=== PATIENT | female | born 1945 | race Caucasian/White ===

== ENCOUNTER → 2017-11-11 14:34 | Outpatient (CLI) | payer MEDICARE, SELFPAY ==
--- NOTE | 2017-11-11 14:44 | RAD_ITS ---
STUDY: X-RAY - ABDOMEN/PELVIS REASON FOR EXAM: Female, 72 years old. Right lower quadrant pain TECHNIQUE: Single AP view of the abdomen / pelvis. COMPARISON: None. FINDINGS: Normal visualized lung bases. There is an unremarkable bowel gas pattern. There is no demonstrated free abdominal air. The visualized liver, spleen and kidneys are grossly normal in size and morphology. Cholecystectomy clips noted. No intra-abdominal calcification. Phleboliths noted. Normal soft tissue structures. Degenerative change bilateral hip joints, bilateral sacroiliac joints, and the lower lumbar spine. RAD/Abdomen Single View IMPRESSION: Normal x-ray examination of the abdomen and pelvis. Electronically Signed: Huy Alonzo MD at 1:46 EDT Tel , Service support ,
== END ==
PROVIDERS: Family Provider Family Medicine; PCP Family Medicine; Visit Provider Family Medicine
DX: R10.9 Unspecified abdominal pain (principal)
CPT/HCPCS: 74018

== ENCOUNTER 2018-01-02 08:54 | Day surgery (SDC) | payer MEDICARE, SELFPAY ==
[2018-01-02 09:27] VITALS: BP 156/92; PULSE 66; RESP 18; TEMP 36.7; O2SAT 99; BMI 31.1
[2018-01-02 11:15] VITALS: BP 132/80; BP 156/92; PULSE 67; RESP 16; TEMP 35.8; O2SAT 98
[2018-01-02 11:20] VITALS: BP 129/82; BP 156/92; PULSE 62; RESP 16; O2SAT 100
--- NOTE | 2018-01-02 11:21 | PCM.OPRPT ---
Report of Operation Date of Procedure: 01/02/18 Pre-Operative Diagnosis: Screening for colon cancer Post-Operative Diagnosis: Normal colon Surgery/Procedure Performed:: Colonoscopy Type of Anesthesia:: MAC Anesthesiologist: Willy Bello Specimen's removed: None Estimated Blood Loss (mL): None Description of Procedure: Procedure: Colonoscopy After reviewing the risks benefits, the patient was deemed in satisfactory condition to undergo procedure. After obtaining informed consent, the scope was passed under direct visualization. Throughout the procedure, the patient's blood pressure pulse and position saturations were monitored continuously anesthesia. The colonoscope was introduced through the anus and advanced to the cecum, identified by the appendiceal orifice, IC valve and transillumination. The colonoscopy was performed without difficulty. The patient tolerated procedure well. Quality of bowel prep was good. Findings: The perianal and digital rectal exam were normal. The colon (entire examined portion) appeared normal. Retroflexed view of the distal rectum and anal verge was normal and showed no anal or rectal abnormalities Impression: 1. The entire colon is normal. 2. The distal rectal and anal verge were normal on retroflexed view. Recommendations: Repeat colonoscopy in 10 years for screening purposes pending on overall health at that time - Complications none
[2018-01-02 11:25] VITALS: BP 124/79; BP 156/92; PULSE 60; RESP 16; O2SAT 100
[2018-01-02 11:30] VITALS: BP 145/90; BP 156/92; PULSE 60; RESP 16; TEMP 35.8; O2SAT 100
[2018-01-02 11:52] VITALS: BP 156/92
== END 2018-01-02 11:53 | disposition home or self-care (01) ==
LOC: EN 08:55 → AC 08:58
PROVIDERS: Family Provider Family Medicine; PCP Family Medicine; Visit Provider Surgery
PROC: 0DJD8ZZ Inspection of Lower Intestinal Tract, Via Natural or Artificial Opening Endoscopic (ICD-10-PCS; CPT 45378; principal; 2018-01-02 10:25)
DX: Z12.11 Encounter for screening for malignant neoplasm of colon (principal); Z86.010 Personal history of colon polyps; I69.311 Memory deficit following cerebral infarction; I69.369 Other paralytic syndrome following cerebral infarction affecting unspecified side; G83.89 Other specified paralytic syndromes; I10 Essential (primary) hypertension; E78.5 Hyperlipidemia, unspecified; F41.9 Anxiety disorder, unspecified; Z85.3 Personal history of malignant neoplasm of breast; Z90.13 Acquired absence of bilateral breasts and nipples; Z79.82 Long term (current) use of aspirin; Z79.899 Other long term (current) drug therapy
CPT/HCPCS: G0121; J7120

== ENCOUNTER → 2018-02-20 10:35 | Outpatient (CLI) | payer MEDICARE, SELFPAY ==
--- NOTE | 2018-02-20 10:38 | RAD_ITS ---
STUDY: X-RAY - LUMBAR SPINE REASON FOR EXAM: Female, 72 years old. Right lumbar radiculopathy, history of breast cancer TECHNIQUE: 5 view(s) of the lumbar spine were obtained. COMPARISON: None FINDINGS: Normal lumbar lordosis. There is no substantial scoliosis. There is a minimal grade 1 anterolisthesis of L4 relative to L5. There is diffuse endplate spondylosis. There is severe narrowing of the L4-5 disc space with sclerosis of the adjacent endplates. There is moderately severe narrowing of the L2-3 and L5-S1 disc spaces also. There is no demonstrated fracture. There is no demonstrated spondylolysis of the pars interarticulares. There are calcified plaques of the abdominal aorta. RAD/L/S Spine Min 4 Views IMPRESSION: Degenerative changes of the spine, as detailed above. Electronically Signed: Keshawn Sorto MD at 18:44 EDT , Service support ,
== END ==
PROVIDERS: Family Provider Family Medicine; PCP Family Medicine; Visit Provider Family Medicine
DX: M54.16 Radiculopathy, lumbar region (principal)
CPT/HCPCS: 72110

== ENCOUNTER 2018-04-28 15:18 | Emergency (ER) | payer MEDICARE, SELFPAY ==
[2018-04-28 15:19] VITALS: BP 154/79; PULSE 64; RESP 16; TEMP 36.8; O2SAT 98; BMI 29.9
[2018-04-28 15:56] LABS: Absolute Lymphocyte Count 1.63 X10^3/ul (0.83-4.51); Absolute Neutrophil Count 4.6 X10^3/uL (2.0-7.7); Basophil# 0.03 X10^3/uL; Basophil% 0.4 % (0-1); Eosinophil# 0.19 X10^3/uL; Eosinophils% 2.7 % (0-5); Hematocrit 36.6 % (37-47); Hemoglobin 11.8 g/dl (12.0-15.0); Lymphocyte # 1.63 X10^3/ul (4.0); Lymphocyte % 23.4 % (19-41); Mean Corp Hgb Conc 32.2 g/gl (32-36); Mean Corpuscular Volume 89.9 fL (81-99); Mean Platelet Vol. 10.5 fl (6.2-12.0); Monocyte# 0.52 X10^3/uL; Monocyte% 7.5 % (0-10); Neutrophil # 4.58 X10^3/uL (2.7-7.7); Neutrophil % 65.9 % (47-70); Platelet Count 224 K/mm3 (150-450); RBC Distribution Width CV 15.4 % (11.6-14.6); RBC Distribution Width SD 50.2 fl (35.1-43.9); Red Blood Count 4.07 M/mm3 (4.2-5.4)
[2018-04-28 16:02] LABS: POSITIVE COUNT NO; POSITIVE DIFFERENTIAL NO; POSITIVE MORPHOLOGY NO
[2018-04-28 16:10] LABS: Anion Gap 7 (5-15); BUN 23 mg/dL (7-18); BUN/Creat Ratio 27.4 RATIO (10-20); Calcium,Total 8.7 mg/dL (8.5-10.1); Chloride 111 mmol/L (98-107); Creatinine, Serum 0.84 mg/dL (0.55-1.02); EST Glomerular Filtration Rate 71 mL/min (>60); Est Glom Filt Rate - Afr Amer 86 mL/min (>60); Estimated Creatinine Clearance 55.28 ml/min; Glucose 104 mg/dL (74-106); Potassium 3.9 mmol/L (3.5-5.1); Sodium Level 144 mmol/L (136-145)
--- NOTE | 2018-04-28 16:16 | EKG12_ITS ---
Test Reason : MEDICAL CLEARANCE Blood Pressure : / mmHG Vent. Rate : 061 BPM Atrial Rate : 061 BPM P-R Int : 250 ms QRS Dur : 090 ms QT Int : 426 ms P-R-T Axes : 035 008 031 degrees QTc Int : 428 ms Sinus rhythm with 1st degree A-V block Inferior infarct , age undetermined Abnormal ECG Confirmed by JESSIE DAVIS ([id number]), editorial cartoonist SAMM SORENSON ([id number]) on 05/02/2018 2:21:05 PM Referred By: PRESTON Confirmed By:JESSIE DAVIS
[2018-04-28 16:26] LABS: Alcohol, Blood (Medical)-Serum < 3.0 mg/dL
[2018-04-28 16:51] LABS: Thyroid Stim Hormone (TSH) 1.82 uIU/mL (0.358-3.74)
[2018-04-28 17:55] LABS: Amphetamine Urine VISTA NEGATIVE (<1000 ng/mL); Barbiturate Urine VISTA NEGATIVE (< 200 ng/mL); Benzodiazepine Urine VISTA POSITIVE (< 200 ng/mL); Cocaine Urine VISTA NEGATIVE (< 300 ng/mL); Ecstacy Urine VISTA NEGATIVE (< 500 ng/mL); Methadone Urine VISTA NEGATIVE (< 300 ng/mL); PCP Urine VISTA NEGATIVE (< 25 ng/mL); THC Urine VISTA NEGATIVE (< 50 ng/mL); Vista UDS pH Range 6
--- NOTE | 2018-04-28 18:00 | NURSING ---
CALLED CRISIS FOR EVALUATION
[2018-04-28] MEDS: Acetaminophen 500 MG Tablet 1000 MG PO (18:27)
[2018-04-28 18:44] VITALS: BP 162/82; PULSE 64; RESP 17; O2SAT 97
[2018-04-28 18:56] LABS: Mucous, Urine 0 SEEN /hpf (<or=2+); Red Blood Cells-Urine 0 SEEN /hpf (0-5)
[2018-04-28 19:06] LABS: Color, Urine Yellow (Yellow); Glucose, Dipstick Normal (Normal); Ketone-Dipstick Negative (Negative); Leukocyte Esterase-Dipstick 500 /ul (Negative); Nitrite-Dipstick Negative (Negative); Occult Blood-Urine Negative /ul (Negative); Protein-Dipstick 30 mg/dl (Negative); Urine Clarity Clear (Clear); Urine Urobilinogen Normal (Normal)
[2018-04-28 19:07] LABS: Urine Bilirubin Dipstick 1 mg/dL (Negative)
[2018-04-28 19:19] LABS: Bacteria 1+ /hpf (None Seen); Calcium Oxalate Crystals Ur 4+ /hpf (<or=2+); Squamous Epithelial Cells - UA 0-5 SEEN /hpf (5-10); White Blood Cells 5-10 SEEN /hpf (0-5)
--- NOTE | 2018-04-28 19:20 | ED.RN ---
MOSES FROM [facility]IS HERE.
[2018-04-28 19:51] VITALS: BP 143/83; PULSE 67; RESP 22; O2SAT 100
[2018-04-28] MEDS: Cephalexin 250 MG Capsule 500 MG PO (21:46)
[2018-04-28 22:20] VITALS: BP 170/78; PULSE 64; RESP 16; O2SAT 98
[2018-04-28] MEDS: Verapamil 120 MG Tablet 240 MG PO (22:22)
--- NOTE | 2018-04-28 22:47 | ED.VISSUMM ---
- ER Visit Summary Date of Service: 04/28/18 Chief Complaint: Depression and suicidal ideation History of Present Illness: The patient is a [address] Alas. She does not see a psychiatrist. She has long-standing history of depression. She gotten much worse over the past 2 weeks. She is feeling overwhelmed and having suicidal thoughts. Physical Examination: Vitals: Stable. Afebrile. General: Well-nourished and well-developed. Head: Normocephalic atraumatic. Neck: Supple, no lymphadenopathy. No JVD. Nontender. Cardiovascular: Regular rate and rhythm. No murmurs. Respiratory: No respiratory distress. Clear to auscultation bilaterally. Abdominal: Soft, nontender, nondistended, normal bowel sounds. No guarding, rebound, or peritoneal signs. Back: Nontender. Extremities: Nontender, no edema. Skin: Normal color, no rash. Neurologic: Alert and oriented ?3. Cranial nerves II through XII are intact. Normal strength and sensation. Mental status exam: Patient appears their stated age. Good posture and grooming. Good eye contact. Normal rate, volume, and latency of speech. No homicidal ideation. No auditory or visual hallucinations. Flow of thought is logical. Insight and judgment is fair. Test Results: EKG is sinus with a first-degree AV block rate of 61. No acute changes. CBC is remarkable for an H&H 11 point and 36.6. Chem-7 is more for chloride 111 BUN 23. UA is marked for leukocytes, 510 white blood cells, 1+ bacteria. Tox screen shows benzodiazepines. Alcohol level 0. TSH is 1.82. CT brain is normal. Emergency Department Course and Treatment: Patient was treated with Tylenol and Keflex p.o. She is resting comfortably. Treatment Plan: Patient discussed with the counseling center. They have arranged for her to be transferred to a psychiatric facility. Disposition: Transferred in stable condition. Impression: 1. Depression. 2. Suicidal ideation. 3. UTI. This note was generated with [employer] dictation software. It may contain incorrect words, spelling, and punctuation that were not noted in review of the chart prior to signing ED Disposition - Plan for ED Patient: Chief Complaint: Suicidal Referrals: Ha Alas, [Primary Care Provider] -
--- NOTE | 2018-04-28 22:52 | ED.RN ---
DAUGHTER CALLED WITH UPDATE
[2018-04-28 22:56] VITALS: BP 170/78; PULSE 64; RESP 16; O2SAT 98
== END 2018-04-28 23:15 ==
PROVIDERS: Emergency Provider Emergency Medicine; Family Provider Family Medicine; PCP Family Medicine
DX: F32.9 Major depressive disorder, single episode, unspecified (principal); R45.851 Suicidal ideations; N39.0 Urinary tract infection, site not specified; I10 Essential (primary) hypertension; E78.00 Pure hypercholesterolemia, unspecified; E87.6 Hypokalemia; Z85.3 Personal history of malignant neoplasm of breast; Z86.73 Personal history of transient ischemic attack (TIA), and cerebral infarction without residual deficits; Z79.82 Long term (current) use of aspirin; Z79.899 Other long term (current) drug therapy
CPT/HCPCS: 70450; 80048; 80307; 80320; 81001; 84443; 85025; 93005; 99284; G0480

== ENCOUNTER → 2018-08-30 11:28 | Outpatient (CLI) | payer MEDICARE, SELFPAY ==
[2018-08-23 14:21] VITALS: BMI 30.3
[2018-08-30 11:34] LABS: Red Blood Cells-Urine 0 SEEN /hpf (0-5); Squamous Epithelial Cells - UA 0 SEEN /hpf (5-10)
[2018-08-30 14:37] LABS: Absolute Lymphocyte Count 1.65 X10^3/ul (0.83-4.51); Absolute Neutrophil Count 5.9 X10^3/uL (2.0-7.7); Basophil# 0.03 X10^3/uL; Basophil% 0.4 % (0-1); Eosinophil# 0.19 X10^3/uL; Eosinophils% 2.2 % (0-5); Hemoglobin 12.2 g/dl (12.0-15.0); Lymphocyte # 1.65 X10^3/ul (4.0); Lymphocyte % 19.3 % (19-41); Mean Corp Hgb Conc 32.1 g/gl (32-36); Mean Corpuscular Hgb 28.8 pg (27.0-32.0); Mean Corpuscular Volume 89.8 fL (81-99); Monocyte# 0.74 X10^3/uL; Monocyte% 8.7 % (0-10); Neutrophil # 5.91 X10^3/uL (2.7-7.7); Neutrophil % 69.2 % (47-70); Platelet Count 235 K/mm3 (150-450); RBC Distribution Width CV 14.7 % (11.6-14.6); RBC Distribution Width SD 47.8 fl (35.1-43.9); Red Blood Count 4.23 M/mm3 (4.2-5.4); White Blood Count 8.5 K/mm3 (4.4-11.0)
[2018-08-30 14:38] LABS: POSITIVE COUNT NO; POSITIVE DIFFERENTIAL NO; POSITIVE MORPHOLOGY NO
[2018-08-30 14:51] LABS: Color, Urine Yellow (Yellow); Glucose, Dipstick Normal (Normal); Ketone-Dipstick Negative (Negative); Leukocyte Esterase-Dipstick Negative /ul (Negative); Nitrite-Dipstick Negative (Negative); Occult Blood-Urine Negative /ul (Negative); Protein-Dipstick 15 mg/dl (Negative); Urine Clarity Clear (Clear); Urine Urobilinogen Normal (Normal)
[2018-08-30 15:00] LABS: Urine Bilirubin Dipstick 1 mg/dL (Negative)
[2018-08-30 15:02] LABS: Bacteria 1+ /hpf (None Seen); Mucous, Urine 3+ /hpf (<or=2+); White Blood Cells 0-5 SEEN /hpf (0-5)
[2018-08-30 15:05] LABS: Hemoglobin A1c 6.1 % (4.2-6.3)
[2018-08-30 15:33] LABS: ALB/GLOB Ratio 1.4 RATIO (0.9-2.4); AST(SGOT) 16 U/L (15-37); Alanine Aminotransfer ALT/SGPT 36 U/L (13-56); Albumin, Serum 3.9 g/dL (3.2-5.0); Alkaline Phosphatase 94 U/L (45-117); Anion Gap 9 (5-15); BUN 25 mg/dL (7-18); BUN/Creat Ratio 26.7 RATIO (10-20); Calcium,Total 8.5 mg/dL (8.5-10.1); Chloride 106 mmol/L (98-107); Creatinine, Serum 0.94 mg/dL (0.55-1.02); EST Glomerular Filtration Rate 62 mL/min (>60); Est Glom Filt Rate - Afr Amer 76 mL/min (>60); Globulin 2.7 g/dL (2.2-4.2); Glucose 74 mg/dL (74-106); Potassium 3.2 mmol/L (3.5-5.1); Protein, Total 6.6 g/dL (6.4-8.2); Sodium Level 142 mmol/L (136-145); Thyroid Stim Hormone (TSH) 2.23 uIU/mL (0.358-3.74)
== END ==
PROVIDERS: Family Provider Family Medicine; PCP Family Medicine; Visit Provider Family Medicine
DX: I10 Essential (primary) hypertension (principal); R73.09 Other abnormal glucose
CPT/HCPCS: 36415; 80053; 81001; 83036; 84443; 85025

== ENCOUNTER → 2018-09-15 12:42 | Outpatient (CLI) | payer MEDICARE, SELFPAY ==
[2018-08-23 14:21] VITALS: BMI 30.3
--- NOTE | 2018-09-15 12:45 | ART_ITS ---
Reason For Study: PVD Left Segmental Pressures Left brachial= 205mmHg. Left posterior tibial artery = 221mmHg. Left dorsalis pedis artery = 217mmHg. Right Segmental Pressures Right brachial= 191mmHg. Right posterior tibial artery = 217mmHg. Right dorsalis pedis artery = 215mmHg. Indices The right ankle brachial index by the dorsalis pedis is 1.1. The right ankle brachial index by the posterior tibial artery is 1.1. The left ankle brachial index by the dorsalis pedis is 1.1. The left ankle brachial index by the posterior tibial artery is 1.1. Interpretation Summary Triphasic Doppler waveforms are noted at ankle level bilaterally. Resting ankle-brachial indices appear bilaterally normal. There is no evidence of significant arterial occlusive disease. Ordering Physician: Nura Rodas Referring Physician: Nura Rodas Performed By: Eva Nugent Lizzy
== END ==
PROVIDERS: Family Provider Family Medicine; PCP Family Medicine; Referring Provider Family Medicine; Visit Provider Family Medicine
DX: I73.9 Peripheral vascular disease, unspecified (principal)
CPT/HCPCS: 93922

== ENCOUNTER → 2018-09-15 13:58 | Outpatient (CLI) | payer MEDICARE, SELFPAY ==
[2018-08-23 14:21] VITALS: BMI 30.3
[2018-09-15 15:31] LABS: Potassium 3.3 mmol/L (3.5-5.1)
== END ==
PROVIDERS: Family Provider Family Medicine; PCP Family Medicine; Visit Provider Family Medicine
DX: E87.6 Hypokalemia (principal); I73.9 Peripheral vascular disease, unspecified
CPT/HCPCS: 36415; 84132; 93922

== ENCOUNTER → 2018-09-19 08:11 | Outpatient (CLI) | payer MEDICARE, SELFPAY ==
[2018-08-23 14:21] VITALS: BMI 30.3
[2018-09-19 10:33] LABS: Potassium 3.8 mmol/L (3.5-5.1)
== END ==
PROVIDERS: Family Provider Family Medicine; PCP Family Medicine; Visit Provider Family Medicine
DX: E87.5 Hyperkalemia (principal)
CPT/HCPCS: 36415; 84132

== ENCOUNTER → 2018-09-26 10:17 | Outpatient (CLI) | payer MEDICARE, SELFPAY ==
[2018-08-23 14:21] VITALS: BMI 30.3
[2018-09-26 12:24] LABS: Potassium 3.2 mmol/L (3.5-5.1)
[2018-10-03 16:12] LABS: Magnesium 2.3 mg/dL (1.6-2.6); Potassium 4.4 mmol/L (3.5-5.1)
== END ==
PROVIDERS: Family Provider Family Medicine; PCP Family Medicine; Visit Provider Family Medicine
DX: E87.6 Hypokalemia (principal)
CPT/HCPCS: 36415; 83735; 84132

== ENCOUNTER → 2018-10-03 11:33 | Outpatient (CLI) | payer MEDICARE, SELFPAY ==
[2018-08-23 14:21] VITALS: BMI 30.3
== END ==
PROVIDERS: Family Provider Family Medicine; PCP Family Medicine; Visit Provider Family Medicine
DX: Z00.00 Encounter for general adult medical examination without abnormal findings (principal)

== ENCOUNTER → 2018-10-09 11:31 | Outpatient (CLI) | payer MEDICARE, SELFPAY ==
[2018-08-23 14:21] VITALS: BMI 30.3
[2018-10-09 13:59] LABS: Absolute Lymphocyte Count 1.22 X10^3/ul (0.83-4.51); Absolute Neutrophil Count 2.5 X10^3/uL (2.0-7.7); Basophil# 0.03 X10^3/uL; Basophil% 0.7 % (0-1); Eosinophil# 0.11 X10^3/uL; Eosinophils% 2.6 % (0-5); Hematocrit 39.5 % (37-47); Hemoglobin 12.4 g/dl (12.0-15.0); Lymphocyte # 1.22 X10^3/ul (4.0); Lymphocyte % 28.8 % (19-41); Mean Corp Hgb Conc 31.4 g/gl (32-36); Mean Corpuscular Hgb 28.4 pg (27.0-32.0); Mean Corpuscular Volume 90.6 fL (81-99); Mean Platelet Vol. 11.2 fl (6.2-12.0); Monocyte# 0.38 X10^3/uL; Neutrophil # 2.48 X10^3/uL (2.7-7.7); Neutrophil % 58.7 % (47-70); Platelet Count 235 K/mm3 (150-450); RBC Distribution Width CV 14.9 % (11.6-14.6); RBC Distribution Width SD 49.5 fl (35.1-43.9); Red Blood Count 4.36 M/mm3 (4.2-5.4); White Blood Count 4.2 K/mm3 (4.4-11.0)
[2018-10-09 14:00] LABS: POSITIVE COUNT NO; POSITIVE DIFFERENTIAL NO; POSITIVE MORPHOLOGY NO
[2018-10-09 14:12] LABS: Anion Gap 7 (5-15); BUN 19 mg/dL (7-18); BUN/Creat Ratio 22.6 RATIO (10-20); Calcium,Total 8.8 mg/dL (8.5-10.1); Chloride 108 mmol/L (98-107); Creatinine, Serum 0.84 mg/dL (0.55-1.02); EST Glomerular Filtration Rate 71 mL/min (>60); Est Glom Filt Rate - Afr Amer 86 mL/min (>60); Glucose 88 mg/dL (74-106); Potassium 3.7 mmol/L (3.5-5.1); Sodium Level 141 mmol/L (136-145)
== END ==
PROVIDERS: Family Provider Family Medicine; PCP Family Medicine; Visit Provider Family Medicine
DX: K57.92 Diverticulitis of intestine, part unspecified, without perforation or abscess without bleeding (principal); E87.6 Hypokalemia
CPT/HCPCS: 80048; 85025

== ENCOUNTER → 2018-10-09 13:04 | Outpatient (CLI) | payer MEDICARE, SELFPAY ==
[2018-08-23 14:21] VITALS: BMI 30.3
--- NOTE | 2018-10-09 13:22 | CT_ITS ---
STUDY: CT ABDOMEN AND PELVIS WITH CONTRAST REASON FOR EXAM: Female, 72 years old. Diverticulitis. Abdominal pain for one week. RADIATION DOSAGE (If Supplied By Facility): CTDIvol = ( 16.45 ) mGy, DLP = ( 995.59 ) mGycm TECHNIQUE: Transaxial images were obtained from the dome of the diaphragm to the symphysis pubis with oral contrast. Isovue 300 100 IV/Oral was administered. Sagittal and coronal images were reconstructed. Individualized dose optimization techniques were used for this CT. COMPARISON: None. FINDINGS: The visualized lung bases are unremarkable. The visualized portions of the heart are within normal limits. The liver is normal in size, contour and density. There is a 6 mm hypodensity in segment 2 of the liver adjacent to the falciform ligament thought to represent a small cyst. Other smaller hypodensities are seen in segments 8 and 7 thought to represent tiny cysts. These are too small to further characterize. There are surgical clips in the gallbladder fossa consistent with a prior cholecystectomy. Normal spleen. Normal pancreas. Normal right adrenal gland. There is a 1.3 x 1.2 x 1.2 cm low-attenuation mass the left adrenal gland suggesting adenoma. There is a 4 mm nonobstructing calculus lower pole calyx of an otherwise normal right kidney. Normal right ureter. The left kidney is of normal size and cortical thickness. There is a 0.7 cm exophytic cyst off the mid kidney. There is no renal calculi or hydronephrosis. Normal left ureter. Normal visualized stomach. Normal small intestine. Feces is seen throughout the colon without mass or obstruction. There are no visualized diverticuli. The appendix is visualized and appears normal. There is diffuse atherosclerotic calcification of the abdominal aorta, without a demonstrated aneurysm. Normal inferior vena cava. Normal retroperitoneum. Normal urinary bladder. The uterus is anteverted and tilted to the left. Normal adnexa. There are phleboliths in the pelvis without lymphadenopathy. There is no free air or free fluid within the peritoneal cavity. There is an umbilical hernia of omental fat. The abdominal wall is otherwise unremarkable. There are degenerative changes lumbar spine. There is mild anterolisthesis of L3 on L4 without pars defects. CT/Abdomen/Pelvis WITH Contrast IMPRESSION: 1. Increased colonic feces suggesting constipation. There is no evidence of diverticuli or diverticulitis. 2. Nonobstructing right renal calculus. 3. Left renal cyst. 4. Probable hepatic cysts. 5. Status post cholecystectomy. 6. Degenerative changes of the lumbar spine. Electronically Signed: Mayur Ibanez DO at 16:51 EST Tel [phone], Service support ,
== END ==
PROVIDERS: Family Provider Family Medicine; PCP Family Medicine; Referring Provider Family Medicine; Visit Provider Family Medicine
DX: K57.92 Diverticulitis of intestine, part unspecified, without perforation or abscess without bleeding (principal); E87.6 Hypokalemia
CPT/HCPCS: 74177; 80048; 85025; Q9967

== ENCOUNTER → 2018-10-17 11:22 | Outpatient (CLI) | payer MEDICARE, SELFPAY ==
[2018-08-23 14:21] VITALS: BMI 30.3
[2018-10-17 14:07] LABS: AST(SGOT) 16 U/L (15-37); Alanine Aminotransfer ALT/SGPT 29 U/L (13-56); Albumin, Serum 3.9 g/dL (3.2-5.0); Alkaline Phosphatase 83 U/L (45-117); Bilirubin, Direct 0.12 mg/dL (0.00-0.30); CPK Total, Creatine Kinase 65 U/L (26-192); Globulin 2.8 g/dL (2.2-4.2); Protein, Total 6.7 g/dL (6.4-8.2)
== END ==
PROVIDERS: Family Provider Family Medicine; PCP Family Medicine; Referring Provider Family Medicine; Visit Provider Family Medicine
DX: R25.2 Cramp and spasm (principal)
CPT/HCPCS: 36415; 80076; 82550

== ENCOUNTER → 2018-11-09 12:26 | Outpatient (CLI) | payer MEDICARE, SELFPAY ==
[2018-08-23 14:21] VITALS: BMI 30.3
== END ==
PROVIDERS: Family Provider Family Medicine; PCP Family Medicine; Referring Provider Family Medicine; Visit Provider Family Medicine
DX: E87.6 Hypokalemia (principal); R10.13 Epigastric pain
CPT/HCPCS: 36415; 84132

== ENCOUNTER → 2018-11-11 17:26 | Outpatient (CLI) | payer MEDICARE, SELFPAY ==
[2018-08-23 14:21] VITALS: BMI 30.3
== END ==
PROVIDERS: Family Provider Family Medicine; PCP Family Medicine; Visit Provider Family Medicine
DX: R69 Illness, unspecified (principal)

== ENCOUNTER → 2018-11-13 14:23 | Outpatient (CLI) | payer MEDICARE, SELFPAY ==
[2018-08-23 14:21] VITALS: BMI 30.3
== END ==
PROVIDERS: Family Provider Family Medicine; PCP Family Medicine; Referring Provider Family Medicine; Visit Provider Family Medicine
DX: R10.13 Epigastric pain (principal)

== ENCOUNTER → 2018-12-25 10:10 | Outpatient (CLI) | payer MEDICARE, SELFPAY ==
[2018-08-23 14:21] VITALS: BMI 30.3
[2018-12-25 10:20] LABS: Mucous, Urine 0 SEEN /hpf (<or=2+); Red Blood Cells-Urine 0 SEEN /hpf (0-5)
[2018-12-25 12:01] LABS: Color, Urine Yellow (Yellow); Glucose, Dipstick 50 mg/dl (Normal); Ketone-Dipstick Negative (Negative); Leukocyte Esterase-Dipstick 100 /ul (Negative); Nitrite-Dipstick Negative (Negative); Occult Blood-Urine Negative /ul (Negative); Protein-Dipstick 30 mg/dl (Negative); Specific Gravity, Urine 1.025 (1.002-1.030); Urine Clarity Sl. Cloudy (Clear); Urine Urobilinogen Normal (Normal)
[2018-12-25 12:04] LABS: Urine Bilirubin Dipstick 1 mg/dL (Negative)
[2018-12-25 12:13] LABS: Bacteria RARE /hpf (None Seen); Calcium Oxalate Crystals Ur 2+ /hpf (<or=2+); Squamous Epithelial Cells - UA 0-5 SEEN /hpf (5-10); White Blood Cells 0-5 SEEN /hpf (0-5)
[2018-12-25 12:33] LABS: Albumin, Serum 3.8 g/dL (3.2-5.0); BUN 27 mg/dL (7-18); BUN/Creat Ratio 27.4 RATIO (10-20); Calcium,Total 8.9 mg/dL (8.5-10.1); Chloride 111 mmol/L (98-107); Creatinine, Serum 0.98 mg/dL (0.55-1.02); EST Glomerular Filtration Rate 59 mL/min (>60); Est Glom Filt Rate - Afr Amer 71 mL/min (>60); Glucose 80 mg/dL (74-106); Magnesium 2.1 mg/dL (1.6-2.6); Phosphorus 3.5 mg/dL (2.5-4.9); Potassium 3.4 mmol/L (3.5-5.1); Rheumatoid Factor < 10.0 IU/mL (<15); Sodium Level 142 mmol/L (136-145)
[2018-12-25 13:08] LABS: Potassium 3.4 mmol/L (3.5-5.1)
[2018-12-27 12:18] LABS: ANTINUCLEAR ANTIBODIES DIRECT Negative (Negative)
== END ==
PROVIDERS: Family Provider Family Medicine; PCP Family Medicine; Referring Provider Family Medicine; Visit Provider Internal Medicine Nephrology
DX: E87.6 Hypokalemia (principal); M19.90 Unspecified osteoarthritis, unspecified site; R31.21 Asymptomatic microscopic hematuria
CPT/HCPCS: 36415; 80069; 81001; 83735; 84132; 86038; 86431

== ENCOUNTER → 2018-12-25 15:03 | Outpatient (CLI) | payer MEDICARE, SELFPAY ==
[2018-08-23 14:21] VITALS: BMI 30.3
[2018-12-25 13:00] VITALS: BMI 31.6
--- NOTE | 2018-12-25 15:12 | US_ITS ---
STUDY: RENAL ULTRASOUND - COMPLETE REASON FOR EXAM: Female, 73 years old. Microscopic hematuria TECHNIQUE: Ultrasound evaluation of the kidneys was performed with real-time and static estrada-scale imaging. COMPARISON: CT scan 10/09/2018. FINDINGS: RIGHT KIDNEY: Normal location of the right kidney, which is normal in size. The right kidney measures 10.0 x 5.0 x 4.1 cm. There is a normal cortex of the right kidney. The renal cortex measures 1.1 cm. There is no right renal mass or cyst. There is a 4 mm nonobstructing stone. There is no right hydronephrosis. DISTAL RIGHT URETER: There is non-visualization of the distal right ureter. There is no demonstrated right ureterovesical junction calculus. There is a visualized right ureteral jet. LEFT KIDNEY: Normal location of the left kidney, which is normal in size. The left kidney measures 9.5 x 4.9 x 5.0 cm. There is a normal cortex of the left kidney. The renal cortex measures 1.1 cm. There is a 3 mm nonobstructing stone. There is a 1.2 cm cyst. There is no left hydronephrosis. DISTAL LEFT URETER: There is non-visualization of the distal left ureter. There is no demonstrated left ureterovesical junction calculus. There is a visualized left ureteral jet. BLADDER: The urinary bladder has a volume of 79 ml. There is a normal wall thickness of the distended urinary bladder. There is no demonstrated mass within the urinary bladder. There are no demonstrated bladder calculi. US/Kidney and Bladder IMPRESSION: No acute abnormalities. No hydronephrosis. Bilateral small nonobstructing stones. Electronically Signed: Steve Abdi MD at 23:57 EDT , Service support ,
== END ==
PROVIDERS: Family Provider Family Medicine; PCP Family Medicine; Referring Provider Internal Medicine Nephrology; Visit Provider Internal Medicine Nephrology
DX: R31.21 Asymptomatic microscopic hematuria (principal); E87.6 Hypokalemia; M19.90 Unspecified osteoarthritis, unspecified site
CPT/HCPCS: 36415; 76770; 80069; 81001; 83735; 84132; 86038; 86431

== ENCOUNTER → 2019-01-17 14:41 | Outpatient (CLI) | payer MEDICARE, SELFPAY ==
[2018-12-25 13:00] VITALS: BMI 31.6
[2019-01-17 16:20] LABS: Hemoglobin A1c 5.8 % (4.2-6.3)
[2019-01-17 16:39] LABS: ALB/GLOB Ratio 1.3 RATIO (0.9-2.4); AST(SGOT) 11 U/L (15-37); Alanine Aminotransfer ALT/SGPT 22 U/L (13-56); Albumin, Serum 3.8 g/dL (3.2-5.0); Alkaline Phosphatase 85 U/L (45-117); Anion Gap 9 (5-15); BUN 28 mg/dL (7-18); Chloride 109 mmol/L (98-107); Cholesterol 127 mg/dL (200); Creatinine, Serum 1.27 mg/dL (0.55-1.02); EST Glomerular Filtration Rate 44 mL/min (>60); Est Glom Filt Rate - Afr Amer 53 mL/min (>60); Glucose 79 mg/dL (74-106); High Density Lipoprotein 62 mg/dL; Protein, Total 6.8 g/dL (6.4-8.2); Sodium Level 146 mmol/L (136-145); Triglycerides 112 mg/dL; Very Low Density Lipoprotein 22 mg/dL (5-40)
[2019-01-17 16:53] LABS: Vitamin D,25 Hydroxy 43.5 ng/mL (29.95-100.01)
== END ==
PROVIDERS: Family Provider Family Medicine; PCP Family Medicine; Referring Provider Family Medicine; Visit Provider Family Medicine
DX: E87.6 Hypokalemia (principal); I10 Essential (primary) hypertension; E78.5 Hyperlipidemia, unspecified; E55.9 Vitamin D deficiency, unspecified; R73.02 Impaired glucose tolerance (oral)
CPT/HCPCS: 36415; 80053; 80061; 82306; 83036

== ENCOUNTER → 2019-05-09 09:49 | Outpatient (CLI) | payer MEDICARE, SELFPAY ==
[2018-12-25 13:00] VITALS: BMI 31.6
== END ==
PROVIDERS: Family Provider Family Medicine; PCP Family Medicine; Referring Provider Internal Medicine Hematology & Oncology; Visit Provider Internal Medicine Hematology & Oncology
DX: C50.911 Malignant neoplasm of unspecified site of right female breast (principal); C50.912 Malignant neoplasm of unspecified site of left female breast; Z78.0 Asymptomatic menopausal state; Z79.899 Other long term (current) drug therapy

== ENCOUNTER → 2019-05-29 10:18 | Outpatient (CLI) | payer MEDICARE, SELFPAY ==
[2018-12-25 13:00] VITALS: BMI 31.6
--- NOTE | 2019-05-29 10:26 | BD_ITS ---
STUDY: DUAL ENERGY X-RAY ABSORPTIOMETRY / DXA REASON FOR EXAM: Female, 73 years old. The patient is postmenopausal. No loss of height. TECHNIQUE: Bone Mineral Density (BMD) measurements of lumbar spine and bilateral hips were obtained. COMPARISON: Comparison is made with prior examination dated April 12, 2017. FINDINGS: Lumbar Spine (L1-L4): g/cm2 (1.212) / T-score (0.4) / Z-score (2.1) Findings are suggestive of normal bone density with a low fracture risk. Left Femur Total: g/cm2 (0.918) / T-score (-0.7) / Z-score (0.9) Left Femoral Neck: g/cm2 (1.039) / T-score (0.0) / Z-score (1.8) Right Femur Total: g/cm2 (1.044) / T-score (0.3) / Z-score (1.9) Right Femoral Neck: g/cm2 (1.122) / T-score (0.6) / Z-score (2.4) The T-Scores on the most recent prior examination were: Lumbar Spine (L1-L4): There has been worsening of bone density since the previous examination. Left Femur Total: which represents a worsening of 12.5%. Right Femur Total: which represents a worsening of 3.5%. BD/Dexa Bone Density Study IMPRESSION: The patient is considered normal as outlined below according to World Kaiser Organization (WHO) criteria with a low fracture risk. There has been worsening of bone density since the previous examination. Reference Information: The T-score is the number of standard deviations above or below the standard which is normal for young adults at their peak bone mineral density. The World Health Organization (WHO) interprets the T-scores as follows: Above -1 Normal bone density Between -1 and -2.5 Osteopenia Equal to / or below -2.5 Osteoporosis As a practical clinical guideline, osteopenia may be graded as follows: Mild -1 through -1.5 Moderate -1.6 through -2.0 Severe -2.1 through -2.4 The Z-score is the number of standard deviations above or below age-matched controls. A Z-score of less than -1.5 would be considered abnormal. References: 1. NIH Osteoporosis and Related Bone Diseases http://www.osteo.org 2. International Society for Clinical Densitometry http://www.iscd.org 3. National Osteoporosis Foundation http://www.nof.org Electronically Signed: Vincent Echavarria, at 8:50 EDT , Service support ,
== END ==
PROVIDERS: Family Provider Family Medicine; PCP Family Medicine; Referring Provider Internal Medicine Hematology & Oncology; Visit Provider Internal Medicine Hematology & Oncology
DX: Z78.0 Asymptomatic menopausal state (principal)
CPT/HCPCS: 77080

== ENCOUNTER → 2019-06-12 17:11 | Outpatient (CLI) | payer MEDICARE, SELFPAY ==
[2019-06-06 14:58] VITALS: BMI 31.8
--- NOTE | 2019-06-12 17:14 | RAD_ITS ---
STUDY: X-RAY - RIGHT KNEE REASON FOR EXAM: Female, 73 years old. Knee pain TECHNIQUE: 4 view(s) of the knee. COMPARISON: None. FINDINGS: Normal visualized distal femur. Normal visualized proximal tibia and fibula. Normal proximal tibiofibular articulation. Degenerative spurring and narrowing at the medial femorotibial compartment. Normal lateral femorotibial compartment. Degenerate spurring and narrowing at the patellofemoral articulation. The soft tissue structures are unremarkable. Mild chondrocalcinosis of the menisci. RAD/Knee 4 or More Views IMPRESSION: Degenerative changes of the knee. Mild chondrocalcinosis. Electronically Signed: Barrie Hong DO at 17:53 EDT Tel [phone], Service support ,
--- NOTE | 2019-06-12 17:14 | RAD_ITS ---
STUDY: X-RAY - PELVIS AND BILATERAL HIPS REASON FOR EXAM: Female, 73 years old. Pain TECHNIQUE: AP view of the pelvis.? 2 views of the right hip, and 2 views of the left hip were obtained. COMPARISON: None. FINDINGS: There is a non-specific bowel gas pattern. Normal visualized soft tissue structures. Degenerative lower lumbar changes. Normal bilateral iliac wings, sacroiliac joints and visualized sacrum. Normal bilateral superior and inferior pubic rami. Normal pubic symphysis. Normal bilateral ischial tuberosities. Questionable subcapital fracture of the right femur. Sclerosis of the right acetabulum. Degenerative changes and narrowing at the right hip joint. Normal visualized left femoral head. Sclerosis of the left acetabulum. Degenerative changes at the left hip joint. RAD/Hips B/L min 2 views w/ Pelvis IMPRESSION: Questionable subcapital fracture of the right femur. Electronically Signed: Barrie Hong DO at 23:22 EDT Tel [phone], Service support ,
--- NOTE | 2019-06-12 17:14 | RAD_ITS ---
STUDY: X-RAY - LEFT KNEE REASON FOR EXAM: Female, 73 years old. Pain TECHNIQUE: 4 view(s) of the knee. COMPARISON: None. FINDINGS: Normal visualized distal femur. Normal visualized proximal tibia and fibula. Normal proximal tibiofibular articulation. Mild spurring and narrowing at the medial femorotibial compartment. Mild degenerative spurring at the lateral femorotibial compartment. Degenerative spurring at the patellofemoral articulation. The soft tissue structures are unremarkable. RAD/Knee 4 or More Views IMPRESSION: Degenerative changes of the knee. Electronically Signed: Barrie Hong DO at 23:25 EDT Tel [phone], Service support ,
== END ==
PROVIDERS: Family Provider Family Medicine; PCP Family Medicine; Referring Provider Family Medicine; Visit Provider Family Medicine
DX: M25.551 Pain in right hip (principal); M25.552 Pain in left hip; M17.0 Bilateral primary osteoarthritis of knee; M11.261 Other chondrocalcinosis, right knee
CPT/HCPCS: 73521; 73564

== ENCOUNTER → 2019-07-13 14:41 | Outpatient (CLI) | payer MEDICARE, SELFPAY ==
[2019-06-06 14:58] VITALS: BMI 31.8
[2019-07-13 15:54] LABS: Absolute Lymphocyte Count 2.01 X10^3/uL (0.83-4.51); Absolute Neutrophil Count 4.4 X10^3/uL (2.0-7.7); Basophil# 0.03 X10^3/uL; Basophil% 0.4 % (0-1); Eosinophils% 2.8 % (0-5); Hematocrit 38.3 % (37-47); Hemoglobin 12.1 g/dL (12.0-15.0); Lymphocyte # 2.01 X10^3/ul (4.0); Mean Corp Hgb Conc 31.6 g/dL (32-36); Mean Corpuscular Hgb 29.6 pg (27.0-32.0); Mean Corpuscular Volume 93.6 fL (81-99); Mean Platelet Vol. 11.3 fl (6.2-12.0); Monocyte# 0.55 X10^3/uL; Monocyte% 7.7 % (0-10); NRBC Flagged by Analyzer 0 % (0-5); Neutrophil # 4.35 X10^3/uL (2.7-7.7); Neutrophil % 60.7 % (47-70); Platelet Count 259 K/mm3 (150-450); RBC Distribution Width CV 13.2 % (11.6-14.6); RBC Distribution Width SD 45.4 fl (35.1-43.9); Red Blood Count 4.09 M/mm3 (4.2-5.4); White Blood Count 7.2 K/mm3 (4.4-11.0)
[2019-07-13 16:10] LABS: ALB/GLOB Ratio 1.2 RATIO (0.9-2.4); AST(SGOT) 8 U/L (15-37); Alanine Aminotransfer ALT/SGPT 20 U/L (13-56); Albumin, Serum 3.7 g/dL (3.2-5.0); Alkaline Phosphatase 75 U/L (45-117); Anion Gap 5 (5-15); BUN 22 mg/dL (7-18); BUN/Creat Ratio 20.6 RATIO (10-20); Calcium,Total 9.2 mg/dL (8.5-10.1); Chloride 110 mmol/L (98-107); Cholesterol 144 mg/dL (200); Creatinine, Serum 1.07 mg/dL (0.55-1.02); EST Glomerular Filtration Rate 54 mL/min (>60); Est Glom Filt Rate - Afr Amer 65 mL/min (>60); Glucose 84 mg/dL (74-106); High Density Lipoprotein 57 mg/dL; Potassium 4.1 mmol/L (3.5-5.1); Protein, Total 6.7 g/dL (6.4-8.2); Sodium Level 144 mmol/L (136-145); Triglycerides 124 mg/dL; Very Low Density Lipoprotein 25 mg/dL (5-40)
[2019-07-13 16:24] LABS: Hemoglobin A1c 5.8 % (4.2-6.3)
[2019-07-13 16:36] LABS: Vitamin D,25 Hydroxy 41.1 ng/mL (29.95-100.01)
== END ==
PROVIDERS: Family Provider Family Medicine; PCP Family Medicine; Referring Provider Family Medicine; Visit Provider Family Medicine
DX: I10 Essential (primary) hypertension (principal); E78.5 Hyperlipidemia, unspecified; E55.9 Vitamin D deficiency, unspecified; R73.02 Impaired glucose tolerance (oral)
CPT/HCPCS: 36415; 80053; 80061; 82306; 83036; 85025

== ENCOUNTER → 2019-07-18 12:38 | Outpatient (CLI) | payer MEDICARE, SELFPAY ==
[2019-06-06 14:58] VITALS: BMI 31.8
[2019-07-18 12:58] LABS: Absolute Lymphocyte Count 1.81 X10^3/uL (0.83-4.51); Absolute Neutrophil Count 4.1 X10^3/uL (2.0-7.7); Basophil# 0.04 X10^3/uL; Basophil% 0.6 % (0-1); Eosinophil# 0.11 X10^3/uL; Eosinophils% 1.7 % (0-5); Hematocrit 35.2 % (37-47); Hemoglobin 11.5 g/dL (12.0-15.0); Lymphocyte # 1.81 X10^3/ul (4.0); Lymphocyte % 27.5 % (19-41); Mean Corp Hgb Conc 32.7 g/dL (32-36); Mean Corpuscular Volume 91.9 fL (81-99); Mean Platelet Vol. 10.6 fl (6.2-12.0); Monocyte# 0.55 X10^3/uL; Monocyte% 8.3 % (0-10); NRBC Flagged by Analyzer 0 % (0-5); Neutrophil # 4.06 X10^3/uL (2.7-7.7); Neutrophil % 61.6 % (47-70); Platelet Count 212 K/mm3 (150-450); RBC Distribution Width CV 13.6 % (11.6-14.6); Red Blood Count 3.83 M/mm3 (4.2-5.4); White Blood Count 6.6 K/mm3 (4.4-11.0)
--- NOTE | 2019-07-18 13:00 | CT_ITS ---
STUDY: CT ABDOMEN AND PELVIS WITH CONTRAST REASON FOR EXAM: Female, 73 years old. RADIATION DOSAGE (If Supplied By Facility): CTDIvol = ( 17.59 ) mGy, DLP = ( 938.03 ) mGycm TECHNIQUE: Transaxial images were obtained from the dome of the diaphragm to the symphysis pubis without oral contrast. IV/Oral Isovue 370 100mL was administered. Sagittal and coronal images were reconstructed. Individualized dose optimization techniques were used for this CT. COMPARISON: None. FINDINGS: The visualized lung bases are unremarkable. The visualized portions of the heart are within normal limits. 2 tiny hypodensities in the right lobe of the liver segment 7 and in the left lobe of the liver might represent tiny cyst. Otherwise there are no focal lesion in the liver which is normal in size. The spleen is unremarkable. The suprarenal glands on the left side shows evidence of a mass measures about 2 cm. The right adrenal gland is unremarkable. The gallbladder is absent The pancreas is within normal limits The right kidney is normal in size, there is tiny stone in the lower calyx of the right kidney. Mild fullness of the collecting system might be due to its tiny stone in the distal ureter on the right side. The left kidney reveals no evidence of hydronephrosis or stone formation. Tiny exophytic cyst seen on the left side. Normal visualized stomach. The small and large bowel are unremarkable. The appendix is intact. There are a few diverticula seen in the sigmoid without evidence of diverticulitis. Normal abdominal aorta. Normal inferior vena cava. Normal retroperitoneum. Normal urinary bladder. Normal abdominal wall. Degenerative changes in the lumbar spine with narrowing particularly at the level of L4-5 with sclerosis of the endplates CT/Abdomen/Pelvis WITH Contrast IMPRESSION: 2 tiny liver cysts 2 cm tumor involving the left adrenal gland Small renal calculus lower aspect of the right kidney with mild hydronephrosis on the right side could be due to tiny stone in the distal ureter. Electronically Signed: Vipul Lainez, at 15:59 EST Tel , Service support ,
[2019-07-18 13:13] LABS: ALB/GLOB Ratio 1.3 RATIO (0.9-2.4); AST(SGOT) 8 U/L (15-37); Alanine Aminotransfer ALT/SGPT 19 U/L (13-56); Albumin, Serum 3.7 g/dL (3.2-5.0); Alkaline Phosphatase 70 U/L (45-117); Anion Gap 8 (5-15); BUN 21 mg/dL (7-18); BUN/Creat Ratio 21.6 RATIO (10-20); Calcium,Total 9.2 mg/dL (8.5-10.1); Chloride 113 mmol/L (98-107); Creatinine, Serum 0.97 mg/dL (0.55-1.02); EST Glomerular Filtration Rate 60 mL/min (>60); Est Glom Filt Rate - Afr Amer 72 mL/min (>60); Globulin 2.8 g/dL (2.2-4.2); Glucose 91 mg/dL (74-106); Potassium 3.7 mmol/L (3.5-5.1); Protein, Total 6.5 g/dL (6.4-8.2); Sodium Level 145 mmol/L (136-145)
== END ==
PROVIDERS: Family Provider Family Medicine; PCP Family Medicine; Referring Provider Family Medicine; Visit Provider Family Medicine
DX: R19.8 Other specified symptoms and signs involving the digestive system and abdomen (principal)
CPT/HCPCS: 36415; 74177; 80053; 85025; Q9967

== ENCOUNTER → 2019-07-23 12:29 | Outpatient (CLI) | payer MEDICARE, SELFPAY ==
[2019-06-06 14:58] VITALS: BMI 31.8
--- NOTE | 2019-07-23 12:36 | RAD_ITS ---
STUDY: X-RAY - ABDOMEN/PELVIS REASON FOR EXAM: Female, 73 years old. Abdominal pain. Constipation. TECHNIQUE: AP supine and upright views of the abdomen and pelvis. COMPARISON: None. FINDINGS: Normal visualized lung bases. There is a moderate amount of colonic fecal material. There is no demonstrated free abdominal air. The patient is status post cholecystectomy. Normal soft tissue structures. There are diffuse degenerative changes of the visualized lumbar spine. Degenerative changes of the sacroiliac joints and bilateral hip joints worse on the right side. RAD/Abd Inc Decub and/or Erect IMPRESSION: Moderate amount of fecal material is seen in the colon. Electronically Signed: Vincent Echavarria, at 13:11 EST , Service support ,
== END ==
PROVIDERS: Family Provider Family Medicine; PCP Family Medicine; Referring Provider Nurse Practitioner Adult Health; Visit Provider Nurse Practitioner Adult Health
DX: R10.9 Unspecified abdominal pain (principal)
CPT/HCPCS: 74019

== ENCOUNTER → 2019-09-21 | Outpatient (CLI) | payer MEDICARE, SELFPAY ==
[2019-09-12 14:08] VITALS: BMI 30.8
[2019-09-26 13:45] LABS: HPV Reflexed? NOT INDICATED
== END | disposition home or self-care (01) ==
LOC: LABSPEC 14:11
PROVIDERS: PCP Family Medicine; Referring Provider Family Medicine; Visit Provider Family Medicine
DX: Z01.419 Encounter for gynecological examination (general) (routine) without abnormal findings (principal); N95.0 Postmenopausal bleeding
CPT/HCPCS: 88175; G0145

== ENCOUNTER → 2019-10-23 11:57 | Outpatient (CLI) | payer MEDICARE, SELFPAY ==
[2019-09-12 14:08] VITALS: BMI 30.8
--- NOTE | 2019-10-23 12:03 | RAD_ITS ---
HISTORY: right side back pain for months, nausea, not wanting to eat COMPARISON: Abdomen 07/23/2019, 10/22/2017 TECHNIQUE: Frontal chest radiograph. Supine and upright abdominal radiographs. Number of images including paperwork: 6 FINDINGS: Chest: LUNGS AND PLEURA: No consolidation or pleural effusion. CARDIOMEDIASTINAL CONTOUR: Aortic calcification and tortuosity. Abdomen: FREE AIR: None detected. BOWEL GAS PATTERN: Nonobstructive. Large amount of colonic stool. CALCIFICATIONS: No definite urinary tract calculi. Pelvic phleboliths appear grossly similar. ORGANS: No evidence of organomegaly. SOFT TISSUES: Left mastectomy.. BONES: No acute skeletal abnormality. Degenerative changes. DEVICES: Bilateral axillary surgical clips. Right upper quadrant surgical clips. RAD/Acute Abdomen Inc Chest IMPRESSION: 1. No acute cardiopulmonary abnormality is radiographically apparent. 2. No acute abdominal abnormality is radiographically apparent. Large amount of colonic stool. at 0600 Reported and signed by: Cassie Tomas MD Electronically Signed: Cassie Tomas MD at 5:59 EST Tel , Service support ,
== END ==
PROVIDERS: PCP Family Medicine; Referring Provider Family Medicine; Visit Provider Family Medicine
DX: R10.9 Unspecified abdominal pain (principal)
CPT/HCPCS: 74022

== ENCOUNTER → 2019-11-26 12:46 | Outpatient (CLI) | payer MEDICARE, SELFPAY ==
[2019-09-12 14:08] VITALS: BMI 30.8
[2019-11-26 14:53] LABS: Absolute Lymphocyte Count 1.75 X10^3/uL (0.83-4.51); Absolute Neutrophil Count 3.7 X10^3/uL (2.0-7.7); Basophil# 0.06 X10^3/uL; Eosinophil# 0.24 X10^3/uL; Eosinophils% 3.8 % (0-5); Hematocrit 38.9 % (37-47); Hemoglobin 12.7 g/dL (12.0-15.0); Lymphocyte # 1.75 X10^3/ul (4.0); Mean Corp Hgb Conc 32.6 g/dL (32-36); Mean Corpuscular Hgb 30.1 pg (27.0-32.0); Mean Corpuscular Volume 92.2 fL (81-99); Mean Platelet Vol. 10.6 fl (6.2-12.0); Monocyte# 0.46 X10^3/uL; Monocyte% 7.3 % (0-10); NRBC Flagged by Analyzer 0 % (0-5); Neutrophil # 3.73 X10^3/uL (2.7-7.7); Neutrophil % 59.6 % (47-70); Platelet Count 270 K/mm3 (150-450); RBC Distribution Width CV 13.6 % (11.6-14.6); RBC Distribution Width SD 46.3 fl (35.1-43.9); Red Blood Count 4.22 M/mm3 (4.2-5.4); White Blood Count 6.3 K/mm3 (4.4-11.0)
[2019-11-26 15:07] LABS: ALB/GLOB Ratio 1.4 RATIO (0.9-2.4); AST(SGOT) 18 U/L (15-37); Alanine Aminotransfer ALT/SGPT 32 U/L (13-56); Alkaline Phosphatase 82 U/L (45-117); Anion Gap 6 (5-15); BUN 32 mg/dL (7-18); BUN/Creat Ratio 24.2 RATIO (10-20); Calcium,Total 9.2 mg/dL (8.5-10.1); Chloride 113 mmol/L (98-107); Cholesterol 133 mg/dL (200); Creatinine, Serum 1.32 mg/dL (0.55-1.02); EST Glomerular Filtration Rate 42 mL/min (>60); Est Glom Filt Rate - Afr Amer 51 mL/min (>60); Globulin 2.9 g/dL (2.2-4.2); Glucose 126 mg/dL (74-106); High Density Lipoprotein 68 mg/dL; Potassium 4.2 mmol/L (3.5-5.1); Protein, Total 6.9 g/dL (6.4-8.2); Sodium Level 144 mmol/L (136-145); Triglycerides 107 mg/dL; Very Low Density Lipoprotein 21 mg/dL (5-40)
[2019-11-26 15:08] LABS: Vitamin D,25 Hydroxy 38.1 ng/mL
[2019-11-26 15:16] LABS: Hemoglobin A1c 5.5 % (4.2-6.3)
[2019-11-26 15:18] LABS: Microalbumin,Random Urine 48.4 mg/L (NO RANGE EST.); Microalbumin:Creatinine Ratio 21.6 mg/g CRE (<30 mg/g CRE)
== END ==
PROVIDERS: PCP Family Medicine; Visit Provider Family Medicine
DX: I10 Essential (primary) hypertension (principal); E78.5 Hyperlipidemia, unspecified; E55.9 Vitamin D deficiency, unspecified; R73.02 Impaired glucose tolerance (oral)
CPT/HCPCS: 80053; 80061; 82043; 82306; 82570; 83036; 85025

== ENCOUNTER → 2019-12-04 | Outpatient (CLI) | payer MEDICARE, SELFPAY ==
[2019-09-12 14:08] VITALS: BMI 30.8
== END | disposition home or self-care (01) ==
LOC: LABSPEC 15:10
PROVIDERS: PCP Family Medicine; Referring Provider Family Medicine; Visit Provider Family Medicine
DX: R10.9 Unspecified abdominal pain (principal)
CPT/HCPCS: 87086; 87088

== ENCOUNTER 2019-12-07 15:58 | Emergency (ER) | payer MEDICARE, SELFPAY ==
[2019-09-12 14:08] VITALS: BMI 30.8
[2019-12-07 15:59] VITALS: BP 161/84; PULSE 82; RESP 20; TEMP 36.4; O2SAT 97; BMI 27.4
--- NOTE | 2019-12-07 16:21 | CT_ITS ---
STUDY: CT ABDOMEN AND PELVIS WITHOUT CONTRAST REASON FOR EXAM: Female, 74 years old. PERIUMBILICAL PAIN X 3 WEEKS. Hx of diverticulitis and breast cancer. P RADIATION DOSAGE (If Supplied By Facility): CTDIvol = ( 17.20 ) mGy, DLP = ( 951.57 ) mGycm TECHNIQUE: Transaxial images were obtained from the dome of the diaphragm to the symphysis pubis without oral contrast, and without intravenous contrast. Sagittal and coronal images were reconstructed. Individualized dose optimization techniques were used for this CT. COMPARISON: CT of abdomen and pelvis dated July 18, 2019 FINDINGS: The visualized lung bases are unremarkable. Several tiny cysts are present in the right and left lobes of the liver. No intrahepatic biliary duct dilatation or liver mass. There are surgical clips in the gallbladder fossa consistent with a prior cholecystectomy. A small cyst is present in the spleen which is otherwise within normal limits. Normal pancreas. There are small, circumscribed, smooth, low attenuation bilateral adrenal masses, consistent with an adrenal adenoma. Normal right kidney. Normal left kidney. . No hydronephrosis or renal masses. No large stones. There is a small hiatal hernia. Normal small intestine. Normal colon. A large amount of stool is present throughout the colon. No bowel dilatation or obstruction. No free air or free fluid. The appendix is visualized and appears normal. There is diffuse atherosclerotic calcification of the abdominal aorta, without a demonstrated aneurysm. Normal inferior vena cava. Normal retroperitoneum. Normal urinary bladder. Small calcified nodule seen in the uterus which is otherwise grossly unremarkable. There is a small shallow 2.93 cm umbilical hernia containing fat. Tiny fat-containing left inguinal hernia noted. Normal osseous structures. CT/Abdomen/Pelvis W IV Cont ONLY IMPRESSION: 1. There is a small shallow 2.93 cm umbilical hernia containing fat. Tiny fat-containing left inguinal hernia noted. 2. Large amount of stool throughout the colon. Electronically Signed: Kevin Washburn MD at 18:37 EDT , Service support ,
--- NOTE | 2019-12-07 16:24 | ED.VISSUMM ---
- ER Visit Summary Date of Service: 12/07/19 Chief Complaint: Lower abdominal pain History of Present Illness: The patient is a 74 F history of diverticulosis, prior stroke and hypertension. Also prior kidney stone. Prior appendectomy, cholecystectomy and bilateral mastectomy secondary to breast cancer. Patient states she has had lower abdominal pain for about 3 weeks. Saw her primary care physician. That time was felt to be secondary to constipation. Is not improved she was sent to the ER for further evaluation. She denies any dysuria. She denies any fever. She denies any diarrhea or melena. She has had nausea but no vomiting. Physical Examination: Older female no acute distress sitting upright in a chair. Vital signs stable afebrile. HEENT exam unremarkable. Neck nontender. Lungs clear to auscultation bilaterally. Heart regular rhythm no murmur. Abdomen soft nondistended normal bowel sounds. No peritoneal signs. Mild lower quadrant tenderness. Bilaterally. No hernia or mass. No signs of obstruction. No pulsatile mass. Upper quadrants are unremarkable. Extremities moves all 4. Neurologically she is awake and alert with no focal motor deficits. Back nontender. Test Results: Normal white count of 7. Hemoglobin 17. Chemistries normal other than a BUN 29 creatinine 1.2. Liver enzymes normal. Lipase normal urine 5-10 whites but no nitrates or bacteria no infection. CT abdomen pelvis showed increased stool small umbilical hernia but no diverticulitis and a normal-appearing appendix. Read by the radiologist and reviewed by me. Emergency Department Course and Treatment: Older female with bilateral lower quadrant abdominal pain. She will undergo CAT scan labs. Differential diagnosis would include diverticulitis, UTI versus other etiologies. She has had both her gallbladder and appendix removed. Patient did not anything for pain or nausea at this time. Treatment Plan: Multiple repeat exams patient is doing well. She will be treated for constipation with magnesium citrate. Outpatient follow-up. Return if worse. Disposition: Discharge Impression: Acute abdominal pain secondary to constipation. This note was generated with [employer] dictation software. It may contain incorrect words, spelling, and punctuation that were not noted in review of the chart prior to signing ED Disposition - Plan for ED Patient: Referrals: Nura Rodas MD [Primary Care Provider] -
[2019-12-07 17:04] VITALS: BP 159/90; PULSE 68; RESP 20; O2SAT 100
[2019-12-07 17:07] LABS: Absolute Lymphocyte Count 2.07 X10^3/uL (0.83-4.51); Absolute Neutrophil Count 4.1 X10^3/uL (2.0-7.7); Basophil# 0.05 X10^3/uL; Basophil% 0.7 % (0-1); Eosinophil# 0.15 X10^3/uL; Eosinophils% 2.2 % (0-5); Hematocrit 38.3 % (37-47); Hemoglobin 12.5 g/dL (12.0-15.0); Lymphocyte # 2.07 X10^3/ul (4.0); Lymphocyte % 29.7 % (19-41); Mean Corp Hgb Conc 32.6 g/dL (32-36); Mean Corpuscular Volume 91.8 fL (81-99); Mean Platelet Vol. 10.2 fl (6.2-12.0); Monocyte# 0.62 X10^3/uL; Monocyte% 8.9 % (0-10); NRBC Flagged by Analyzer 0 % (0-5); Neutrophil # 4.05 X10^3/uL (2.7-7.7); Neutrophil % 58.2 % (47-70); Platelet Count 244 K/mm3 (150-450); RBC Distribution Width CV 13.5 % (11.6-14.6); RBC Distribution Width SD 45.9 fl (35.1-43.9); Red Blood Count 4.17 M/mm3 (4.2-5.4)
[2019-12-07] MEDS: 0.9% Normal Saline 1,000 ML 1000 ML IV (17:08)
[2019-12-07 17:12] LABS: Bacteria 0 SEEN /hpf (None Seen); Mucous, Urine 0 SEEN /hpf (<or=2+); Red Blood Cells-Urine 0 SEEN /hpf (0-5)
[2019-12-07 17:18] LABS: Color, Urine Yellow (Yellow); Glucose, Dipstick Normal (Normal); Ketone-Dipstick Negative (Negative); Leukocyte Esterase-Dipstick 100 /ul (Negative); Nitrite-Dipstick Negative (Negative); Occult Blood-Urine Negative /ul (Negative); Protein-Dipstick Negative (Negative); Urine Bilirubin Dipstick Negative (Negative); Urine Clarity Sl. Cloudy (Clear); Urine Urobilinogen Normal (Normal)
[2019-12-07 17:40] LABS: ALB/GLOB Ratio 1.3 RATIO (0.9-2.4); AST(SGOT) 15 U/L (15-37); Alanine Aminotransfer ALT/SGPT 29 U/L (13-56); Alkaline Phosphatase 82 U/L (45-117); Anion Gap 7 (5-15); BUN 29 mg/dL (7-18); BUN/Creat Ratio 24.2 RATIO (10-20); Calcium,Total 9.1 mg/dL (8.5-10.1); Chloride 107 mmol/L (98-107); EST Glomerular Filtration Rate 47 mL/min (>60); Est Glom Filt Rate - Afr Amer 57 mL/min (>60); Estimated Creatinine Clearance 36.06 ml/min; Glucose 92 mg/dL (74-106); Lipase 153 U/L (73-393); Potassium 4.1 mmol/L (3.5-5.1); Sodium Level 140 mmol/L (136-145)
[2019-12-07 17:53] LABS: Amorphous Sediment 1+ PHOS; Squamous Epithelial Cells - UA 0-5 SEEN /hpf (5-10); White Blood Cells 5-10 SEEN /hpf (0-5)
--- NOTE | 2019-12-07 18:46 | ED.DEP ---
ED Disposition - Plan for ED Patient: Disposition: Home or Assisted Living Instructions: ED Constipation Referrals: Nura Rodas MD [Primary Care Provider] - 3-5 Days if not improving Additional Instructions: Drink entire bottle of magnesium citrate. If you do not have a bowel movement within 3 hours drink the second bottle. Your labs were unremarkable. Your CAT scan showed no signs of diverticulitis. It appeared that you had increased stool in your colon consistent with constipation.
[2019-12-07] MEDS: Magnesium Citrate 300 ML PO (19:03)
[2019-12-07 19:04] VITALS: BP 140/78; PULSE 79; RESP 18
== END 2019-12-07 19:12 | disposition home or self-care (01) ==
PROVIDERS: Emergency Provider Emergency Medicine; PCP Family Medicine
DX: K59.00 Constipation, unspecified (principal); I10 Essential (primary) hypertension; Z79.82 Long term (current) use of aspirin; Z79.899 Other long term (current) drug therapy; Z90.49 Acquired absence of other specified parts of digestive tract; Z86.73 Personal history of transient ischemic attack (TIA), and cerebral infarction without residual deficits
CPT/HCPCS: 74177; 80053; 81001; 83690; 85025; 96360; 96361; 99283; J7030; Q9967; A4216

== ENCOUNTER → 2019-12-28 15:00 | Outpatient (CLI) | payer MEDICARE, SELFPAY ==
[2019-12-07 15:59] VITALS: BMI 27.4
--- NOTE | 2019-12-28 15:04 | RAD_ITS ---
STUDY: X-RAY - ABDOMEN/PELVIS REASON FOR EXAM: Female, 74 years old. Abd pain, back pain and constipation TECHNIQUE: AP supine and upright views of the abdomen and pelvis. COMPARISON: Comparison is made with prior study dated October 23, 2011. FINDINGS: Normal visualized lung bases. There is a moderate amount of colonic fecal material. There is no demonstrated free abdominal air. Surgical clips are seen in the right upper quadrant suggest prior cholecystectomy. There are calcified phleboliths in the pelvis. There are diffuse degenerative changes of the visualized lumbar spine. RAD/Abd Inc Decub and/or Erect IMPRESSION: Moderate amount of fecal material is seen in the colon. Electronically Signed: Vincent Echavarria, at 15:18 EDT , Service support ,
[2019-12-28 17:39] LABS: Hematocrit 38.7 % (37-47); Hemoglobin 12.6 g/dL (12.0-15.0); Mean Corp Hgb Conc 32.6 g/dL (32-36); Mean Corpuscular Hgb 29.6 pg (27.0-32.0); Mean Corpuscular Volume 90.8 fL (81-99); Mean Platelet Vol. 10.5 fl (6.2-12.0); Platelet Count 252 K/mm3 (150-450); RBC Distribution Width CV 13.8 % (11.6-14.6); RBC Distribution Width SD 45.5 fl (35.1-43.9); Red Blood Count 4.26 M/mm3 (4.2-5.4); White Blood Count 6.8 K/mm3 (4.4-11.0)
[2019-12-28 17:59] LABS: ALB/GLOB Ratio 1.2 RATIO (0.9-2.4); AST(SGOT) 14 U/L (15-37); Alanine Aminotransfer ALT/SGPT 28 U/L (13-56); Albumin, Serum 3.9 g/dL (3.2-5.0); Alkaline Phosphatase 77 U/L (45-117); Anion Gap 8 (5-15); BUN 26 mg/dL (7-18); BUN/Creat Ratio 17.7 RATIO (10-20); CRP < 2.90 mg/L (0.0-3.0); Calcium,Total 9.4 mg/dL (8.5-10.1); Chloride 108 mmol/L (98-107); Creatinine, Serum 1.47 mg/dL (0.55-1.02); EST Glomerular Filtration Rate 37 mL/min (>60); Est Glom Filt Rate - Afr Amer 45 mL/min (>60); Globulin 3.3 g/dL (2.2-4.2); Glucose 95 mg/dL (74-106); Lipase 130 U/L (73-393); Potassium 3.1 mmol/L (3.5-5.1); Protein, Total 7.2 g/dL (6.4-8.2); Sodium Level 141 mmol/L (136-145); T4 Total, Thyroxin 8.4 ug/dL (4.8-13.9); Thyroid Stim Hormone (TSH) 1.71 uIU/mL (0.358-3.74)
[2019-12-28 18:06] LABS: Erythrocyte Sedimentation Rate 5 mm/hr (0-30)
== END ==
PROVIDERS: PCP Family Medicine; Referring Provider Internal Medicine Gastroenterology; Visit Provider Internal Medicine Gastroenterology
DX: K59.00 Constipation, unspecified (principal)
CPT/HCPCS: 36415; 74019; 80053; 83690; 84436; 84443; 85027; 85652; 86140

== ENCOUNTER 2020-01-07 09:08 | Emergency (ER) | payer MEDICARE, SELFPAY ==
[2020-01-07 09:09] VITALS: BP 156/78; PULSE 72; RESP 28; TEMP 36.3; O2SAT 97; BMI 28.3
--- NOTE | 2020-01-07 10:42 | ED.VIS.GI ---
History of Present Illness Chief Complaint: Abd Pain - Abdominal Pain/Flank Pain Onset: Month(s) - 1-2 Context: Gradual Onset Timing: Waxes and wanes Quality: Aching Location: Diffuse Current Severity: Severe Maximum Severity: Severe Worsened by: Nothing Relieved by: - - only by Linzess and magnesium citrate - Nausea/Vomiting/Emesis GI Symptom: Nausea. Negative for: Vomiting - Diarrhea/Melena/Hematochezia GI Symptom: Negative for: Diarrhea, Melena, Hematochezia Associated Symptoms: Negative for: Dysuria, Frequency, Hematuria, Urgency Narrative: Patient presents fairly hysterical and hyperventilating about abdominal pain, bloating, and unable to have a bowel movement. When I asked if she is constipated, she states no I am not constipated, I have a blockage of some sort. She then refuses a CT scan because she recently had some that were fairly unremarkable. In fact, they showed constipation. Her last one was 1.5 months ago in our records. She had a KUB 2 weeks ago that showed colonic fecal retention diffusely. She states that she has had C-sections in the past but no other abdominal surgeries. She does not take prescription pain medications. She states these symptoms went away yesterday when she took Linzess and magnesium citrate, but they came back again. She states she has not eaten very much and does not understand why she would be constipated again if she did not eat much since her last bowel movement. She also states that she is here because Dr. Panda sent me. I spoke with Dr. Panda; he states that he is happy to see the patient as an outpatient as he has in the past month or 2 for the same problem, however she was so hysterical on the phone this morning about her symptoms, he told the patient appropriately that if she is so miserable that his office is not the place for her, she will need to go to the emergency department. She confirms that these are the same symptoms that she has been having off and on for the last month or 2. She denies any fevers, cough, shortness of breath. She appears dyspnea, and she confirms that she is hyperventilating because she is in so much abdominal pain. She denies any chest pain. She denies melena, bright red blood per rectum. She states she had 8 or 9 bowel movements yesterday as a result of taking those medications which have helped in the past as well, but mostly liquid. Recent Illness/Hospitalization: No - Past Medical History (1) Anemia Status: Chronic (2) Cancer of left female breast Status: Chronic (3) Cancer of right female breast Status: Chronic Past Medical History - Allergies and Home Meds Allergies/Adverse Reactions: Allergies duloxetine [From Cymbalta] Adverse Reaction (Severe, Verified 01/07/20 09:09) Other major depression Primary Care Physician: Nura Rodas MD [Primary Care Provider] - Doctors: [facility] Surgical History: mastectomy - bilat Lives: Alone Smoking Status: Never smoker - Family History Paternal Family History: Family History (Last Reviewed 09/12/19 @ 14:04 by Kendal Mars) Father Heart disease Hypertension CVA (cerebral vascular accident) Mother Heart disease Multiple sclerosis Sister Multiple sclerosis Family History: Reports: No pertinent history Maternal Family History: Family History (Last Reviewed 09/12/19 @ 14:04 by Kendal Mars) Father Heart disease Hypertension CVA (cerebral vascular accident) Mother Heart disease Multiple sclerosis Sister Multiple sclerosis Family History: Reports: No pertinent history Review of Systems General: Denies: Chills, Fever, Sweats Eyes: Denies: Visual changes - bilaterally, Diplopia ENT: Denies: Rhinorrhea, Sore throat Cardiovascular: Denies: Chest pain, Palpitations Respiratory: Denies: Dyspnea, Cough, Dyspnea on exertion Gastrointestinal: Reports: Abdominal pain, Nausea, Diarrhea, Constipation - see HPI. Denies: Vomiting, Melena, Hematochezia Genitourinary: Denies: Dysuria, Hematuria, Frequency Musculoskeletal: Denies: Neck pain, Back pain, Swelling, Extremity Pain Skin: Denies: Rash, Wounds Neurological: Denies: Headache, Weakness, Numbness Psych: Reports: Anxiety. Denies: Suicidal thoughts Physical Exam Vital Signs/Narrative: Vital Signs Temp Pulse Resp BP Pulse Ox 01/07/20 09:09 97.4 F L 72 28 H 156/78 H 97 Inital Vital Signs reviewed: Yes General: Well nourished, Well developed, Obese, No Acute Distress Head: Normocephalic, Atraumatic Eyes: Perrl, EOMI ENT: Moist mucous membranes, No rhinorrhea Neck: Supple, Nontender Cardiovascular: Regular rate, Regular rhythm, No murmurs Respiratory: No distress, CTA bilaterally, Chest nontender Abdomen: Soft, Normal bowel sounds, Tender - mildly, diffusely, except for LLQ, - - mildly distended. Negative for: Guarding, Rebound tenderness Back: Nontender, Normal Inspection. Negative for: CVA tenderness Extremities: Nontender, No edema. Negative for: Calf Tenderness Skin: Normal color, No rash, No Trauma Neurological: Alert, Oriented x3, Cranial nerves II-XII grossly intact, Normal Strength, Normal Sensation Psychological: - - Very anxious. In trying to get straight answers to some questions and asking firmly, patient states I do not like your bedside manner. Diagnostic/Tx/Re-eval Impressions KUB X-Ray 01/07/20 11:00 IMPRESSION: There is a moderate amount of colonic fecal material. Electronically Signed: Mariah Bruce, at 11:25 EDT Tel , Service support , 01/07/20 11:00 KUB [Abdomen Single View] [RAD] Stat Laboratory Results 01/07/20 01/07/20 10:50 10:50 WBC 6.9 RBC 4.07 L Hgb 12.1 Hct 36.4 L MCV 89.4 MCH 29.7 MCHC 33.2 RDW Std Deviation 44.3 H RDW Coeff of Sondra 13.6 Plt Count 236 MPV 10.3 Immature Gran % (Auto) 0.300 Neut % (Auto) 57.9 Lymph % (Auto) 31.0 Mccormick % (Auto) 7.4 Eos % (Auto) 2.7 Baso % (Auto) 0.7 Absolute Neuts (auto) 4.0 Absolute Lymphs (auto) 2.14 Nucleated RBC % 0 Sodium 144 Potassium 3.4 L Chloride 114 H Carbon Dioxide 23.0 Anion Gap 7 BUN 23 H Creatinine 1.00 Estim Creat Clear Calc 43.27 Est GFR (MDRD) Af Amer 70 Est GFR (MDRD) Non-Af 58 L BUN/Creatinine Ratio 23.0 H Glucose 90 Calcium 9.4 - Medical Decision Making I spent quite a bit of time trying to calm this patient down and explained to her that she could have encopresis and that an enema could help her temporarily, but we would have a difficult time solving her problem from the last month or so, from recurring, that is what follow-up and colonoscopy is for. She says something about wanting to be admitted to get the colonoscopy as soon as possible, I advised her that is not how it happens but we will do everything we can to help her here and make sure she does not have anything dangerous. I think she has encopresis. Her KUB shows a plethora of stool throughout the colon. Her labs are unremarkable. She was given soapsuds enema and it did not make a significant amount of affect. She appears very comfortable. She states it still hurts in her abdomen, and she did the enema well, yet only had a lot of brown liquid come out. I discussed with Dr. Panda again, he does not recommend mineral oil enema, rather prescribing her GoLYTELY and having her follow-up as an outpatient if she can have some good results. ED Disposition - Plan for ED Patient: Disposition: Home or Assisted Living Diagnosis: Encopresis Instructions: ED Constipation, Bowel Prep Oral solution, Bowel Prep Oral solution Prescriptions: Dicyclomine HCl [Bentyl] 20 mg PO . Q4-6H PRN #20 cap PRN Reason: abdominal pain Prescription Printed [id number]/Sod Sulf,Bicarb,Cl/KCl [Golytely Solution] 4,000 ml PO . ONCE #1 [email or web address] Prescription Printed Referrals: Nura Rodas MD [Primary Care Provider] - Marty Panda MD [NON-STAFF] - 5-7 Days
[2020-01-07 10:58] LABS: Absolute Lymphocyte Count 2.14 X10^3/uL (0.83-4.51); Basophil# 0.05 X10^3/uL; Basophil% 0.7 % (0-1); Eosinophil# 0.19 X10^3/uL; Eosinophils% 2.7 % (0-5); Hematocrit 36.4 % (37-47); Hemoglobin 12.1 g/dL (12.0-15.0); Lymphocyte # 2.14 X10^3/ul (4.0); Mean Corp Hgb Conc 33.2 g/dL (32-36); Mean Corpuscular Hgb 29.7 pg (27.0-32.0); Mean Corpuscular Volume 89.4 fL (81-99); Mean Platelet Vol. 10.3 fl (6.2-12.0); Monocyte# 0.51 X10^3/uL; Monocyte% 7.4 % (0-10); NRBC Flagged by Analyzer 0 % (0-5); Neutrophil % 57.9 % (47-70); Platelet Count 236 K/mm3 (150-450); RBC Distribution Width CV 13.6 % (11.6-14.6); RBC Distribution Width SD 44.3 fl (35.1-43.9); Red Blood Count 4.07 M/mm3 (4.2-5.4); White Blood Count 6.9 K/mm3 (4.4-11.0)
--- NOTE | 2020-01-07 11:00 | RAD_ITS ---
STUDY: X-RAY - ABDOMEN/PELVIS REASON FOR EXAM: Female, 74 years old. CONSTIPATION TECHNIQUE: Two AP supine views of the abdomen and pelvis. COMPARISON: None. FINDINGS: Normal visualized lung bases. There is a moderate amount of colonic fecal material. There is no demonstrated free abdominal air. The visualized liver, spleen and kidneys are grossly normal in size and morphology. Normal soft tissue structures. Normal visualized osseous structures. RAD/Abdomen Single View IMPRESSION: There is a moderate amount of colonic fecal material. Electronically Signed: Mariah Bruce, at 11:25 EDT Tel , Service support ,
[2020-01-07 11:09] LABS: Anion Gap 7 (5-15); BUN 23 mg/dL (7-18); Calcium,Total 9.4 mg/dL (8.5-10.1); Chloride 114 mmol/L (98-107); EST Glomerular Filtration Rate 58 mL/min (>60); Est Glom Filt Rate - Afr Amer 70 mL/min (>60); Estimated Creatinine Clearance 43.27 ml/min; Glucose 90 mg/dL (74-106); Potassium 3.4 mmol/L (3.5-5.1); Sodium Level 144 mmol/L (136-145)
[2020-01-07] MEDS: Dicyclomine 20 MG/2 ML Vial 10 MG IM (11:37)
[2020-01-07 11:52] VITALS: BP 190/91; PULSE 70; RESP 18; O2SAT 99
[2020-01-07 13:00] VITALS: BP 165/58; PULSE 68; RESP 18; O2SAT 98
[2020-01-07] MEDS: Acetaminophen 325 MG Tablet 650 MG PO (13:53)
[2020-01-07 15:00] VITALS: BP 160/75; PULSE 70; RESP 18; O2SAT 98
== END 2020-01-07 15:50 | disposition home or self-care (01) ==
PROVIDERS: Emergency Provider Emergency Medicine; PCP Family Medicine
DX: R15.9 Full incontinence of feces (principal); E66.9 Obesity, unspecified
CPT/HCPCS: 74018; 80048; 85025; 96360; 96372; 99285; J7030